=== PATIENT | female | born 1950 | race African-American/Black ===

== ENCOUNTER 2019-07-08 18:24 | Inpatient (IN) | payer MEDICARE ==
[~2019-07-08] VITALS: Ht 172.7 cm; Wt 101.8 kg
[2019-07-08] MEDS ORDERED: BAYER CHEWABLE81 MG PO (18:45)
[2019-07-08] MEDS ORDERED: NORVASC10 MG PO (18:45)
[2019-07-08] MEDS ORDERED: HYDRALAZINE HC100 MG PO (18:46)
[2019-07-08] MEDS ORDERED: CATAPRES0.2 MG PO (18:46)
[2019-07-08] MEDS ORDERED: LIPITOR80 MG PO (18:46)
[2019-07-08] MEDS ORDERED: NOVOLOG100 UNIT/1 (18:47)
[2019-07-08] MEDS ORDERED: LEVEMIR IN100 UNITS/ INJ (18:48)
[2019-07-08] MEDS ORDERED: LISINOPRIL40 MG PO (18:49)
[2019-07-08] MEDS ORDERED: TOPROL XL100 MG PO (18:49)
[2019-07-08] MEDS ORDERED: SODIUM BICARBO650 MG PO (18:50)
[2019-07-08 19:16] LABS: BASOPHILS 0.2 % (0-2); HEMATOCRIT 24.7 % (36.0-48.0); HEMOGLOBIN 7.6 g/dL (12-16); IMMATURE GRANULOCYTES 0.3 % (0-5); LYMPHOCYTES 12.7 % (15-50); MCH 28.3 pg (26.0-34.0); MCHC 30.8 g/dL (31.0-37.0); MCV 91.8 fL (80.0-100.0); MEAN PLATELET VOLUME 7.6 fL (7.4-10.4); MONOCYTES 7.3 % (2-11); NEUTROPHILS 76.5 % (40-80); PLATELET COUNT 331 10x3/uL (130-400); RBC 2.69 10x6/uL (4.00-5.40); RDW 15.5 % (11.5-14.5); WBC 10.1 10x3/uL (4.8-10.8)
[2019-07-08 19:48] LABS: ALBUMIN 2.7 g/dL (3.4-5.0); BILIRUBIN - TOTAL 0.13 mg/dL (0.2-1.3); CARBON DIOXIDE 16.5 mmol/L (21.0-32.0); POTASSIUM - SERUM 5.1 mmol/L (3.5-5.1); PROTEIN - SERUM 7.1 g/dL (6.4-8.2)
[2019-07-08 19:56] LABS: INR 1.1 (0.85-1.17); PROTIME 13.7 SECONDS (11.6-15.0)
[2019-07-08 19:57] LABS: APTT 44.4 SECONDS (22.8-39.4)
[2019-07-08 19:58] LABS: D-DIMER-QUANTITATIVE 2.68 ug/mLFEU (0.20-0.54)
[2019-07-08 20:02] LABS: ANION GAP 22.6 mmol/L (8-16)
[2019-07-08 20:05] LABS: CALCIUM 6.7 mg/dL (8.5-10.1)
[2019-07-08 20:11] LABS: CREATINE KINASE 243 UL (21-215); MAGNESIUM - SERUM 2.1 mg/dL (1.8-2.4); TROPONIN-I < 0.017 ng/mL (0.000-0.060)
--- NOTE | 2019-07-08 20:56 | NUR ---
pt given diet sprite and water at this time.
--- NOTE | 2019-07-08 21:30 | NUR ---
PT ARRIVED TO FLOOR VIA WHEEL CHAIR. NO SIGNS OF DISTRESS. PT DENIES ANY PAIN OR NEEDS AT THIS TIME. AAOX4. PT IS UNSURE TO WHY SHE IS IN THE HOSPITAL SINCE SHE DOESNT FEEL SICK, TEACHING ON PT LABS. PT UNDERSTOOD. CL IN REACH, BED IN LOWEST POSITION.
[2019-07-08 21:58] VITALS: BP 173/72; BMI 34.2
[2019-07-09] VITALS: BP 176/87
[2019-07-09 02:33] LABS: CKMB 3.5 U/L (0.0-3.6); CREATINE KINASE 225 UL (21-215); TROPONIN-I < 0.017 ng/mL (0.000-0.060)
[2019-07-09 04:29] VITALS: BP 172/80
[2019-07-09 05:44] LABS: BASOPHILS 0.3 % (0-2); EOSINOPHILS 3.8 % (0-7); HEMATOCRIT 23.8 % (36.0-48.0); IMMATURE GRANULOCYTES 0.5 % (0-5); LYMPHOCYTES 12.6 % (15-50); MCH 27.7 pg (26.0-34.0); MCHC 29.8 g/dL (31.0-37.0); MEAN PLATELET VOLUME 8.1 fL (7.4-10.4); MONOCYTES 7.7 % (2-11); NEUTROPHILS 75.1 % (40-80); PLATELET COUNT 389 10x3/uL (130-400); RBC 2.56 10x6/uL (4.00-5.40); RDW 15.7 % (11.5-14.5); WBC 9.5 10x3/uL (4.8-10.8)
[2019-07-09 06:11] LABS: ALBUMIN 2.3 g/dL (3.4-5.0); BILIRUBIN - TOTAL 0.14 mg/dL (0.2-1.3); CARBON DIOXIDE 16.8 mmol/L (21.0-32.0); MAGNESIUM - SERUM 2.1 mg/dL (1.8-2.4); POTASSIUM - SERUM 4.7 mmol/L (3.5-5.1)
[2019-07-09 06:19] LABS: ANION GAP 17.9 mmol/L (8-16)
[2019-07-09 06:20] LABS: CALCIUM 6.3 mg/dL (8.5-10.1)
[2019-07-09 06:36] LABS: HEMOGLOBIN 7.1 g/dL (12-16)
--- NOTE | 2019-07-09 07:30 | NUR ---
A/A/OX4. DENIES ANY PAIN OR DISCOMFORT AT PRESENT TIME AND NO REQUESTS VOICED. ASSESSMENT COMPLETED AND WILL CONTINUE POC. CALL LIGHT IN REACH AND BED IN LOW POSITION.
[2019-07-09 08:09] LABS: CKMB 3.4 U/L (0.0-3.6); CREATINE KINASE 233 UL (21-215); TROPONIN-I 0.018 ng/mL (0.000-0.060)
[2019-07-09 10:33] VITALS: BP 180/83
--- NOTE | 2019-07-09 13:45 | NUR ---
PRBC UNIT HUNG TO INFUSE AND INFUSING WITHOUT DIFFICULTY.
[2019-07-09 14:01] VITALS: Ht 172.7 cm; Wt 101.8 kg
[2019-07-09 15:12] VITALS: BP 146/65
--- NOTE | 2019-07-09 15:16 | NUR ---
IV INFILTRATED, DC'D WTIH TIP INTACT. RESTARTED IN LEFT HAND WITH 22G X 1 ATTEMPT. PT TOLERATED WELL.
--- NOTE | 2019-07-09 19:16 | NUR ---
EVENING ROUNDS COMPLETE. PT LAYING IN BED, NO SIGNS OF DISTRESS. AAOX4. PT DENINES ANY PAIN OR NEEDS AT THIS TIME. CL IN REACH, BED IN LOWEST POSITION.
[2019-07-09 20:00] VITALS: BP 169/87
[2019-07-10 00:20] VITALS: BP 162/67
[2019-07-10 04:00] VITALS: BP 174/72
--- NOTE | 2019-07-10 05:30 | NUR ---
PT VOIDED AT 0530 FOR THE FIRST TIME. 24 HOUR URINE COLLECTION TO START NOW.
[2019-07-10 06:52] LABS: BASOPHILS 0.2 % (0-2); EOSINOPHILS 4.2 % (0-7); HEMATOCRIT 25.9 % (36.0-48.0); IMMATURE GRANULOCYTES 0.7 % (0-5); LYMPHOCYTES 13.6 % (15-50); MCH 28.4 pg (26.0-34.0); MCHC 30.9 g/dL (31.0-37.0); MCV 91.8 fL (80.0-100.0); MEAN PLATELET VOLUME 8.2 fL (7.4-10.4); MONOCYTES 7.8 % (2-11); NEUTROPHILS 73.5 % (40-80); PLATELET COUNT 374 10x3/uL (130-400); RBC 2.82 10x6/uL (4.00-5.40); RDW 16.2 % (11.5-14.5); WBC 10.3 10x3/uL (4.8-10.8)
[2019-07-10 07:22] LABS: ALBUMIN 2.3 g/dL (3.4-5.0); BILIRUBIN - TOTAL 0.2 mg/dL (0.2-1.3); CREATININE - SERUM 4.9 mg/dL (0.6-1.3); POTASSIUM - SERUM 5.3 mmol/L (3.5-5.1); PROTEIN - SERUM 6.4 g/dL (6.4-8.2)
[2019-07-10 07:40] LABS: ANION GAP 18.3 mmol/L (8-16)
[2019-07-10 07:44] LABS: CALCIUM 6.1 mg/dL (8.5-10.1)
[2019-07-10 08:55] LABS: APPEARANCE CLOUDY (CLEAR); BACTERIA FEW /hpf (NEGATIVE); BILIRUBIN NEGATIVE (NEGATIVE); COLOR YELLOW (YELLOW); EPITHELIAL CELLS 0-5 /hpf (0-5); GLUCOSE NEGATIVE (NEGATIVE); KETONE NEGATIVE (NEGATIVE); NITRITE NEGATIVE (NEGATIVE); PROTEIN 2+ mg/dL (NEGATIVE); UROBILINOGEN NORMAL (NORMAL); WHITE CELLS - URINE 25-50 /hpf (NEGATIVE)
[2019-07-10 09:09] VITALS: BP 153/75
--- NOTE | 2019-07-10 12:35 | NUR ---
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 Noted pt has declined dialysis. Pt reports decreasing intake of fried foods, fast food, salt. States she makes her own salt-free seasonings but says she still does use some salt. Likes orange juice (although she reports she has decreased intake), watermelon, diet root beer and Diet Dr. Humphrey. Pt reports that she still urinates some; noted 24-hour urine collection ordered. Diet: Renal ADA PO intake: 100% Wt: 224.5# (07/09) Labs noted: Na 146, K+ 5.3, Glu 77, GFR 11, Ca 6.1, Alb 2.3 Meds reviewed -Provided education/written information on CKD 5 diet for pts not on dialysis. Discussed current diet choices and possible alternatives. Questions answered. Will attempt to reinforce prior to d/c. -Continue current diet as tolerated. -Monitor wt; noted daily wts ordered. -RD following. Thanks for the consult!
[2019-07-10 13:48] VITALS: BP 148/81
[2019-07-10 17:12] VITALS: BP 136/54
--- NOTE | 2019-07-10 19:36 | NUR ---
EVENING ROUNDS COMPLETE, PT LAYING IN BED, AAOX4. NO SIGNS OF DISTRESS. PT DENIES ANY PAIN OR NEEDS AT THIS TIME. CL IN REACH, BED IN LOWEST POSITION.
[2019-07-10 20:56] VITALS: BP 160/68
[2019-07-11 00:30] VITALS: BP 160/70
[2019-07-11 04:30] VITALS: BP 154/70
[2019-07-11 05:34] LABS: BASOPHILS 0.1 % (0-2); HEMATOCRIT 26.3 % (36.0-48.0); HEMOGLOBIN 8.2 g/dL (12-16); IMMATURE GRANULOCYTES 1.1 % (0-5); LYMPHOCYTES 11.3 % (15-50); MCH 28.7 pg (26.0-34.0); MCHC 31.2 g/dL (31.0-37.0); MEAN PLATELET VOLUME 8.1 fL (7.4-10.4); MONOCYTES 6.7 % (2-11); NEUTROPHILS 77.8 % (40-80); PLATELET COUNT 322 10x3/uL (130-400); RBC 2.86 10x6/uL (4.00-5.40); RDW 16.2 % (11.5-14.5); WBC 12.2 10x3/uL (4.8-10.8)
[2019-07-11 06:14] LABS: ALBUMIN 2.3 g/dL (3.4-5.0); ANION GAP 18.7 mmol/L (8-16); BILIRUBIN - TOTAL 0.17 mg/dL (0.2-1.3); CARBON DIOXIDE 18.5 mmol/L (21.0-32.0); MAGNESIUM - SERUM 2.1 mg/dL (1.8-2.4); POTASSIUM - SERUM 5.2 mmol/L (3.5-5.1); PROTEIN - SERUM 6.8 g/dL (6.4-8.2)
[2019-07-11 06:15] LABS: CALCIUM 6.3 mg/dL (8.5-10.1)
--- NOTE | 2019-07-11 06:26 | NUR ---
NO URINE WAS SAVED AND COLLECTED THIS SHIFT, REPORT WAS NOT GIVEN TO THE CNAL CLEARLY. PER RENAL BUSINESS UNIT MANAGER KAZ NIETO, RESTART 24HR URINE COLLECTION.
[2019-07-11 07:13] LABS: HEPATITIS C ANTIBODY <0.1 S/CO RAT (0.0-0.9)
--- NOTE | 2019-07-11 10:49 | NUR ---
PHARMACY CALLED WITH QUESTION RELATED TO DOSING ON CLONIDINE. STATES CALLED PHARMACY OF RECORD AND ORDER WAS FOR PRN WHERE MED REC HERE SHOWS DAILY DOSE. PT STATES THAT IT WAS ORDERED FROM [facility] AND SHE DOESN'T TAKE IT AT ALL.
[2019-07-11 10:55] VITALS: BP 161/70
--- NOTE | 2019-07-11 14:04 | EC ---
PATIENT:RELL SHORE DATE OF SERVICE: 07/08/19 SEX: F MEDICAL RECORD: [id number] DATE OF : [birth year] LOCATION:D.M2 D.212 AGE OF PATIENT: 69 ADMISSION DATE: 07/08/19 REFERRING PHYSICIAN: INTERPRETING PHYSICIAN: PRISCA KWONG MD ECHOCARDIOGRAM REPORT ECHO CHARGES 4 ECHO COMPLETE Date: 07/09/19 CLINICAL DIAGNOSIS: DYSPNEA ECHOCARDIOGRAPHIC MEASUREMENTS (adult normal given) AC root (d.<3.7cm) 3.2 cm LV Septum d (<1.2 cm> 1.8 cm Valve Excursion 1.7 cm LV Septum (systole) 2.5 cm Left Atria (s.<4.0cm> 4.2 cm LVPW d(<1.2cm) 1.9 cm RV (d.<2.3cm) 3.6 cm LVPW (sytole) 2.1 cm LV diastole(<5.6CM) 4.5 cm MV E-F(>70mm/sec) cm LV systole 2.7 cm LVOT Diameter 1.6 cm MV exc.(>10mm) cm Est.ejection fraction (50-75%) % DOPPLER: LVIT cm/sec A 110.0cm/sec E 112.0 cm/sec LA cm/sec RVSP 22 mmHg LVOT 141 cm/sec AOP1/2T m/s Asc. Ao 158 cm/sec RVOT 108 cm/sec RA cm/sec PA 166 cm/sec AV Gradient Peak 9.95 mmHg AV Mean 5.68 mmHg AV Area 2.2 cm MV Gradient Peak 8.22 mmHg MV Mean 3.59 mmHg MV Area cm COMMENTS: Paint Brush Maker: Yadira MARQUEZ Emergency Technician: 1 Dr. Kwong TAPE# PACS Pericardial Effusion N DATE OF SERVICE: ECHOCARDIOGRAM FINDINGS: 1. Left ventricular chamber size is within normal limits. Left ventricular systolic function is normal. Overall ejection fraction estimated at 60% to 65%. 2. Left atrium is enlarged at 4.2 cm. Right atrium and right ventricle chamber sizes are as well mildly dilated. 3. Valvular structures have normal structure and motion. ECHOCARDIOGRAM REPORT [id number] RELL SHORE 4. Doppler interrogation only reveals trace tricuspid regurgitation, no other valvular insufficiency or stenosis. 5. No evidence of pericardial effusion or left ventricular thrombus. TRANSINT:[id number] Voice Confirmation ID: [id number] DOCUMENT ID: [id number] PRISCA KWONG MD at 1404 CC: [id number] DICTATION DATE: 07/10/19 1011 TAX COLLECTION COORDINATOR: 07/10/19 1310 ADM IN [place] [id number] [place] [address]
[2019-07-11 14:09] VITALS: BP 163/63
[2019-07-11 17:24] VITALS: BP 152/64
--- NOTE | 2019-07-11 19:10 | NUR ---
BEDSIDE REPORT RECEIVED FROM DAY SHIFT, PT CARE ASSUMED. INTRODUCED SELF AND WROTE NAME ON BOARD. PT LYING IN BED WATCHING TV, AAOX4. REQUESTING WATER, PROVIDED. DENIES PAIN OR ANY OTHER NEEDS AT THIS TIME. BED IN LOWEST POSITION, SR X2, CALL LIGHT WITHIN REACH. WILL CONTINUE TO MONITOR.
[2019-07-11 20:00] VITALS: BP 162/73
[2019-07-12 04:00] VITALS: BP 172/80
[2019-07-12 06:02] LABS: BASOPHILS 0.2 % (0-2); EOSINOPHILS 2.7 % (0-7); HEMATOCRIT 27.4 % (36.0-48.0); HEMOGLOBIN 8.4 g/dL (12-16); IMMATURE GRANULOCYTES 1.1 % (0-5); LYMPHOCYTES 14.9 % (15-50); MCH 27.9 pg (26.0-34.0); MCHC 30.7 g/dL (31.0-37.0); MEAN PLATELET VOLUME 8.4 fL (7.4-10.4); MONOCYTES 6.7 % (2-11); NEUTROPHILS 74.4 % (40-80); PLATELET COUNT 379 10x3/uL (130-400); RBC 3.01 10x6/uL (4.00-5.40); WBC 11.4 10x3/uL (4.8-10.8)
[2019-07-12 06:26] LABS: ALBUMIN 2.4 g/dL (3.4-5.0); ANION GAP 16.8 mmol/L (8-16); BILIRUBIN - TOTAL 0.18 mg/dL (0.2-1.3); CARBON DIOXIDE 20.2 mmol/L (21.0-32.0); MAGNESIUM - SERUM 2.1 mg/dL (1.8-2.4); PROTEIN - SERUM 6.7 g/dL (6.4-8.2)
[2019-07-12 06:34] LABS: CALCIUM 6.6 mg/dL (8.5-10.1)
[2019-07-12 07:31] LABS: CREATININE - URINE 74.9 mg/dL (30-125)
[2019-07-12 08:01] LABS: PROTEIN - URINE 490.4 mg/dL (0.0-11.9)
[2019-07-12 09:50] VITALS: BP 150/63
[2019-07-12] MEDS ORDERED: ROCALTROL0.25 MCG PO (11:33)
[2019-07-12] MEDS ORDERED: TUMS PO (11:34)
--- NOTE | 2019-07-12 12:23 | NUR ---
PT'S BROTHER STATES HE IS PT'S RIDE HOME AND THEY HAVE TO LEAVE AND DRIVE BACK TO [place] BEFORE THE STORM AND THEY CAN COME GET HER TOMORROW MORNING.
--- NOTE | 2019-07-12 12:41 | NUR ---
SPOKE WITH JOSE ANTONIO ABOUT PT'S RIDE LEAVING AND THEM STATING THEY CAN PICK PT UP TOMORROW. JOSE ANTONIO STATES SHE IS GOING TODAY AND CASE MANAGEMENT CAN FIND HER A RIDE. SPOKE WITH CORKY CULLENORDER ADMINISTRATOR AND SHE STATES SHE WILL SPEAK WITH TEO. BUT DR. ABBASI WITH DR. BENITES IS SUPPOSSED TO SEE PT TODAY BEFORE SHE IS DC'D.
--- NOTE | 2019-07-12 15:08 | NUR ---
LEF THAND IV DC'D WITH CATH INTACT. TELEMETRY DC'D. DISCHARGE INSTRUCTIOSNGIVEN AND EXPLAINED TO PT. PT HAS NO FURTHER QUESTIONS. CHART COPY SIGNED.
--- NOTE | 2019-07-12 15:21 | NUR ---
PT TAKEN DOWN VIA WC BY STRAIGHTENER AND LEFT IN TAXI.
--- NOTE | 2019-07-12 17:32 | MORECARE ---
CASE MANAGEMENT DISCHARGE SUMMARY PATIENT: RELL SHORE UNIT: [id number] ADM DATE: 07/08/19 AGE: 69 : [birth year] SEX: F ROOM/BED: D.2014 AUTHOR: CHANDANA,DOC PHYSICIAN: REFERRING PHYSICIAN: PROSPER KING MD DATE OF SERVICE: 07/12/19 Discharge Plan Patient Name: RELL SHORE Facility: [facility]:[place] : 1950 Planned Disposition: Home Anticipated Discharge Date: 07/12/19 Discharge Date: 07/12/2019 Expected LOS: 4 Initial Reviewer: SURESH Initial Review Date: 07/12/2019 Generated: 07/12/19 6:31 pm Comments DCP- Discharge Planning Updated by [id number]: Pedro Edwards on 07/12/19 4:[address] Patient Name: RELL SHORE Admission Status: ER Accout number: [id number] Admission Date: 07-08-2019 : 1950 Admission Diagnosis: Attending: NIXON Current LOS: 4 Anticipated DC Date: 07-12-2019 Planned Disposition: Home Primary Insurance: Living Independently Group ADVANTAGE [facility] Discharge Planning Comments: CM MET WITH PT IN ROOM TO DISCUSS DISCHARGE PLANNING AND NEEDS. PT REPORTS LIVING AT HOME INDEPENDENTLY AND ALONE. PT HAS CANE AND WALKER WITH NO MEDICAL EQUIPMENT PROVIDER PREFERNECE. PT HAS NO OUTSIDE SERVICES ASSISTING IN THE HOME. CM DISCUSSED AVAILABILITY OF HOME HEALTH, REHAB SERVICES AND MEDICAL EQUIPMENT. PT DENIES DISCHARGE NEEDS, REPORTS HER BROTHER WILL PICK HER UP FOR DISCHARGE HOME TOMORROW. IMPORTANT MESSAGE FROM MEDICARE PROVIDED AND EXPLAINED. CM RECEIVED DISCHARGE ORDER, MET WITH PT IN ROOM, PT CALLED HER BROTHER WHO WILL NOT COME UNTIL TOMORROW DUE TO BAD WEATHER TONIGHT. PT DOES NOT HAVE FUNDS TO PAY FOR TAXI AND DOES NOT HAVE ACCESS TO MEDICAID TRANSPORTATION SERVICES, DENIES HAVING ANYONE ELSE TO PICK HER UP. CM SPOKE TO DIRECTOR VENITA WHO PROVIDED APPROVAL FOR $225 TAXI HOME. PT IN AGREEMENT WITH PLAN PT DISCHARGED HOME VIA TAXI. Church Business Administrator: Pedro Edwards DCPIA - Discharge Planning Initial Assessment Updated by [id number]: Pedro Edwards on 07/12/19 5:26 pm * Is the patient Alert and Oriented? Yes * How many steps to enter\exit or inside your home? * PCP Michelle REYES IN [place] * Pharmacy [facility] * Preadmission Environment Home Alone * ADLs Independent * Equipment Cane Walker * Other Equipment NO MEDICAL EQUIPMENT PROVIDER PREFERENCE * List name and contact numbers for known caregivers / representatives who currently or will assist patient after discharge: GENARO PROCTORER, * Verbal permission to speak to the caregivers and representatives has been obtained from the patient. N/A * Community resources currently utilized None * Please name any agencies selected above. NONE * Additional services required to return to the preadmission environment? No * Can the patient safely return to the preadmission environment? Yes * Has this patient been hospitalized within the prior 30 days at any hospital? Yes Coverage Notice Reviewer: [email or web address] Josh Edwards Notice Issued Date-Time: 07/12/2019 12:45 Notice Type: IM Discharge Notice Notice Delivered To: Patient Relationship to Patient: Denier Control Operator Name: Delivery Method: HAND - Hand Delivered Deborah Days: Prior Verbal Notification: Recipient Understood Notice: Yes Recipient Signature: Yes Med Rec Note Co-signed by Attending: Coverage Notice Comment: Patient Name: RELL SHORE Page [id number] at 1732 All edits/amendments must be made on the electronic document DICTATION DATE: 07/12/191730 MANAGER OF DISTRIBUTION: TIMMY 07/12/191730 RPT#: [id number] DC DATE:07/12/19 STATUS: DIS IN [facility] [address] [place] [address] END OF REPORT
== END 2019-07-12 15:22 | disposition home or self-care (01) | DRG 640 ==
LOC: D.ER 18:24 → D.M2 19:08 → D.SDCHOLD 07-09 11:59 → D.M2 07-09 11:59
PROVIDERS: Family Medicine; Internal Medicine Nephrology; ADMIT Family Medicine; ATTEND Family Medicine
DX: E87.5 Hyperkalemia (principal); N18.6 End stage renal disease; N17.9 Acute kidney failure, unspecified; I12.0 Hypertensive chronic kidney disease with stage 5 chronic kidney disease or end stage renal disease; E11.22 Type 2 diabetes mellitus with diabetic chronic kidney disease; D63.1 Anemia in chronic kidney disease; E78.5 Hyperlipidemia, unspecified; E11.65 Type 2 diabetes mellitus with hyperglycemia